=== PATIENT | female | born 1995 | race Caucasian/White ===

== ENCOUNTER 2024-06-22 02:28 | Emergency (ER) | payer OTHER ==
[~2024-06-22] VITALS: Ht 170.2 cm; Wt 61.2 kg
[2024-06-22] MEDS: ONDANSETRON HCL/PF 4 MG/2 ML VIAL IVP ONE (03:00)
[2024-06-22] MEDS: IV NS 0.9% 1,000 ML BAG IV ONE (03:00)
[2024-06-22] MEDS: FAMOTIDINE/PF INJ 20 MG/2 ML VIAL IV ONE (03:00)
[2024-06-22] MEDS ORDERED: ONDANSETRON HCL/PF 4 MG/2 ML VIAL ONE (03:03)
[2024-06-22] MEDS ORDERED: FAMOTIDINE/PF INJ 20 MG/2 ML VIAL IV ONE (03:03)
[2024-06-22 03:20] LABS: BASOPHILS # (AUTO) 0.1 K/uL (0.0-0.2); BASOPHILS % (AUTO) 0.5 % (0.0-2.0); EOSINOPHILS % (AUTO) 0.2 % (0.0-6.0); HEMATOCRIT 45 % (33-45); HEMOGLOBIN 15.5 g/dL (11.5-14.8); LYMPHOCYTES # (AUTO) 0.3 K/uL (0.8-4.8); LYMPHOCYTES % (AUTO) 2.6 % (20.0-44.0); MEAN CORPUSCULAR HEMOGLOBIN 30 PG (26.0-33.0); MEAN CORPUSCULAR HGB CONC 34 g/dl (31.0-36.0); MEAN CORPUSCULAR VOLUME 88 fL (82-100); MONOCYTES # (AUTO) 0.7 K/uL (0.1-1.30); MONOCYTES % (AUTO) 5.4 % (2.0-12.0); NEUTROPHILS # (AUTO) 12.1 K/uL (1.8-8.9); NEUTROPHILS % (AUTO) 91.3 % (43.0-81.0); PLATELET COUNT (AUTO) 254 K/uL (150-450); RED BLOOD CELL COUNT(AUTO) 5.17 MIL/uL (4.0-5.2); RED CELL DISTRIBUTION WIDTH 13.1 % (11.5-15.0); WHITE BLOOD COUNT (AUTO) 13.3 K/uL (4.3-11.0)
[2024-06-22 03:31] LABS: ALBUMIN 4.3 g/dL (3.4-5.0); BILIRUBIN,DIRECT 0.2 mg/dL (0.0-0.2); CALCIUM, SERUM 9.4 mg/dL (8.5-10.1); CREATININE 1.2 mg/dL (0.6-1.3); POTASSIUM 3.9 mmol/L (3.5-5.1)
[2024-06-22] MEDS ORDERED: ONDA4TAB5 PO (03:43)
[2024-06-22 04:33] VITALS: BP 132/80; TEMP 98.2; O2SAT 98
== END 2024-06-22 04:33 | disposition home or self-care (01) ==
LOC: ER 02:34
DX: R11.2 Nausea with vomiting, unspecified (principal); R19.7 Diarrhea, unspecified; R10.2 Pelvic and perineal pain
CPT/HCPCS: 99284; 96374; 96361; 96375; 85025; 80048; 83690; 80076; 36415; 84702; J3490; J2405; J7030